=== PATIENT | male | born 1955 | race Caucasian/White ===

== ENCOUNTER 2016-11-17 08:10 | Inpatient (IN) ==
[2016-11-17] MEDS ORDERED: ceFAZolin 1,000 MG in D5% in Water (Mini-Bag+) 100 ML IVPB ONE (09:25)
[2016-11-17] MEDS: Ondansetron 4 MG/2 ML VIAL IVP PRN (09:41)
[2016-11-17] MEDS: *HR* Morphine 2 MG/ML SYRINGE IVP PRN ×3 (09:41→21:16)
[2016-11-17 10:44] LABS: Basophils % 0.4 %; Eosinophils # 0.1 K/mcL (0.0-0.6); Eosinophils % 1.1 %; Hematocrit 40.7 % (37.5-50.1); Hemoglobin 14.7 g/dL (12.9-16.9); Immature Granulocytes % 0.8 % (0-4); Lymphocytes # 1.3 K/mcL (0.6-4.6); Lymphocytes % 14.8 %; Mean Corpuscular HGB Conc 36.1 g/dL (31.6-35.5); Mean Corpuscular Hemoglobin 31.1 pg (28.0-33.3); Mean Platelet Volume 8.6 fL (9.4-12.4); Monocytes # 0.5 K/mcL (0.0-1.3); Monocytes % 5.4 %; Platelet Count 221 K/mcL (140-400); Red Blood Count 4.73 M/mcL (4.19-5.50); Red Cell Distribution Width 12.1 % (11.5-14.5); Segmented Neutrophils % 77.5 %
[2016-11-17 10:50] LABS: INR 0.9; Prothrombin Time 9.7 Seconds (9.4-12.1)
[2016-11-17 11:00] LABS: BUN/Creatinine Ratio 25 (6-26); Blood Urea Nitrogen 18 mg/dL (8-26); Calcium 9.6 mg/dL (8.6-10.8); Carbon Dioxide 21 mEq/L (19-29); Chloride 101 mEq/L (98-109); Glucose 180 mg/dL (70-99); Osmolality,Calculated 282 (280-300); Sodium 133 mEq/L (136-145); eGFR For African Americans > 60 (> 60); eGFR For Non-African Americans > 60 (> 60)
[2016-11-17 11:04] LABS: Potassium 3.8 mEq/L (3.5-4.5)
[2016-11-17] MEDS: *HR* OxyCODONE Immed Rel 5 MG TABLET PO PRN ×2 (11:11→17:41)
--- NOTE | 2016-11-17 11:40 | Orthopedic History & Physical ---
Date of Encounter: 11/17/16 Time of Encounter: 11:30 Assessment and Plan (1) Lumbar stenosis Current visit: Yes Status: Chronic Patient admitted today with preparation and anticipation surgery per Dr. Ram. Laminectomy L4-5 tomorrow 11/18/16. Patient verbalizes understanding of procedure. Dr. Ram to consent patient on day of surgery. Patient to be NPO after midnight. 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 Osborn is a 61 year old male known to [facility]. He has failed conservative treatment for his lumbar stenosis and radiculopathy including epidural steroid injection performed by Dr. Moulton. He was seen by Dr. Ram last week and given that his symptoms had not improved with conservative management, patient elected surgery. Patient was instructed to arrive this morning in preparation for Laminectomy for lumbar stenosis and radiculopathy affecting his RLE. Patient states that his RLE has gotten progressively more weak, numb, and painful over the past 6 months. He admits to trial of oral medications incluidng opiate pain medication which he states makes him quite nauseated and Ibuprofen which he states does help with mild pain and does not cause him nausea. Patient denies loss of bowel or bladder function, fall, mva, work injury , headaches, blurred vision, trouble swallowing, difficulty with speech, or chest pain or shortness of breath. Patient seen and examined at bedside with present. He is sitting comfortably in bed. Patient is alert and oriented x 3 and converses easily with clear speech and appropriate eye contact. His skin is free of erythema, ecchymosis, or petechiae. He has full use of his bilateral upper extremities. With regard to his lower extremities he demonstrates no tenderness to palpation and full ROM of all lower extremity joints. Strength in his right leg is 4/5 with obvious weakness compared to the left at 5/5 strength. He admits to paresthesia to palpation of right foot. Patient is otherwise neurovascularly intact with regard to all extremities. MRI OF THE LUMBAR SPINE WITHOUT CONTRAST, 10/22/2016 10:31 am TECHNIQUE: Multiplanar multisequence MRI of the lumbar spine was performed without the administration of intravenous contrast. HISTORY: LOW BACK PAIN FINDINGS: BONES/ALIGNMENT: Lumbar vertebral body height and alignment is normal. Multilevel anterior and posterior endplate spurring is noted. No vertebral body edema is noted. SPINAL CORD: Conus is not well seen SOFT TISSUES: No paraspinal mass identified. Multilevel disc desiccation is noted. L1-L2: Mild disc bulging is noted diffusely. Tiny annular tear is noted. Facet hypertrophic changes are noted. L2-L3: Minimal disc bulging is noted, left greater than right. Findings are greatest in the proximal inferior foraminal regions with minimal proximal foraminal narrowing bilaterally. Facet hypertrophic changes are noted. L3-L4: Facet hypertrophic changes are noted. L4-L5: Mild diffuse disc bulging is noted with annular tear. There is a right foraminal broad-based protrusion. Severe right foraminal narrowing is noted. There is mild left foraminal narrowing. Facet hypertrophic changes are noted. L5-S1: Facet hypertrophic changes are noted. Dr. Ram aware of patient in the hospital and planning to perform Laminectomy L4-5 tomorrow 11/18/16. Patient verbalizes understanding of procedure. Dr. Ram to consent patient on day of surgery. Patient to be NPO after midnight. Past Med Surg Social Fam HX - Past Medical History Medical history: diabetes, GERD Psychiatric history: no psych history - Past Surgical History Surgical History: cholecystectomy - Social History Smoking Status: Never smoker Smokeless Tobacco Status: No Alcohol use: none Drug use: none Medications and Allergies Acarbose [Precose] 50 mg PO BID 10/28/16 [History] Ascorbic Acid [Vitamin C] 1,000 mg PO DAILY 10/28/16 [History] Aspirin [Ecotrin] 325 mg PO DAILY 10/28/16 [History] Fish Oil/Dha/Epa [Fish Oil 1,200 mg Fish Oil] 1 each PO DAILY 10/28/16 [History] Lisinopril-HCTZ 20-12.5 [Prinzide 20-12.5] 1 tab PO DAILY 10/28/16 [History] Loratadine [Allergy Relief] 10 mg PO DAILY 10/28/16 [History] Metformin HCl [Fortamet] 1,000 mg PO BID 10/28/16 [History] Omeprazole [PriLOSEC] 20 mg PO DAILY 10/28/16 [History] amLODIPine [Norvasc] 5 mg PO BID 10/28/16 [History] glipiZIDE [Glipizide] 1 tab PO BID 10/28/16 [History] 3 Allergy/AdvReac Type Severity Reaction Status Date / Time No Known Allergies Allergy Verified 05/23/16 10:18 All Systems Reviewed: A 10-system review of systems was performed and is negative for pertinent findings except as documented above in the HPI. Physical Exam - Constitutional Vitals: Temp Pulse Resp BP Pulse Ox 97.5 F L 81 20 132/82 96 11/17/16 11:15 11/17/16 11:15 11/17/16 11:15 11/17/16 11:15 11/17/16 11:15 Results - Labs Result Diagrams: 11/17/16 09:46 11/17/16 09:46 Labs: Abnormal lab results MCHC 36.1 g/dL (31.6-35.5) H 11/17/16 09:46 MPV 8.6 fL (9.4-12.4) L 11/17/16 09:46 Sodium 133 mEq/L (136-145) L 11/17/16 09:46 Glucose 180 mg/dL (70-99) H 11/17/16 09:46 H & H 11/17/16 Range/Units 09:46 Hgb 14.7 (12.9-16.9) g/dL Hct 40.7 (37.5-50.1) % All other labs normal. - VTE Documentation of Mechanical Device: Intermittent pneumatic compression device
--- NOTE | 2016-11-17 20:29 | Anesthesia Evaluation PreOp ---
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 (RLE radiculopathy involving mostly numbness (lower leg and foot) and some weakness) Other Medical History: Diabetes Type II (oral medications only) Anesthesia History: No Prior Anesthetic Complications Alcohol Use: none Drug use: none Medications and Allergies Acarbose [Precose] 50 mg PO BID 10/28/16 [History] Ascorbic Acid [Vitamin C] 1,000 mg PO DAILY 10/28/16 [History] Aspirin [Ecotrin] 325 mg PO DAILY 10/28/16 [History] Fish Oil/Dha/Epa [Fish Oil 1,200 mg Fish Oil] 1 each PO DAILY 10/28/16 [History] Lisinopril-HCTZ 20-12.5 [Prinzide 20-12.5] 1 tab PO DAILY 10/28/16 [History] Loratadine [Allergy Relief] 10 mg PO DAILY 10/28/16 [History] Metformin HCl [Fortamet] 1,000 mg PO BID 10/28/16 [History] Omeprazole [PriLOSEC] 20 mg PO DAILY 10/28/16 [History] amLODIPine [Norvasc] 5 mg PO BID 10/28/16 [History] glipiZIDE [Glipizide] 1 tab PO BID 10/28/16 [History] 3 Allergy/AdvReac Type Severity Reaction Status Date / Time No Known Allergies Allergy Verified 05/23/16 10:18 - Meds/Allergy Pre-op Review Medications Reviewed: Yes Allergies Reviewed: Yes Beta Blockers on Current Med List: No Anesthesia Results - Labs 11/17/16 09:46 11/17/16 09:46 - Imaging EKG: report reviewed, image reviewed (SINUS RHYTHM BORDERLINE LEFT AXIS DEVIATION) Anesthesia Exam Last Vital Signs Temp 97.7 F 11/17/16 14:55 Pulse 80 11/17/16 14:55 Resp 18 11/17/16 14:55 BP 128/86 11/17/16 14:55 Pulse Ox 96 11/17/16 14:55 Weight: 90 kg NPO (# of Hours): >> 8 hrs - HEENT Pupil (Motor): Pupils equal, EOMI Mallampati: II Teeth: Poor dentition, Prosthesis Denture Type: Upper: Complete Oral Opening: Greater than 3 - GEOLOGICAL ENGINEERING TEACHER 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
[2016-11-17] MEDS: *HR* Metformin 500 MG TABLET PO SCH (21:00)
[2016-11-17] MEDS: *HR* GlipiZIDE 5 MG TABLET PO SCH (21:01)
[2016-11-17] MEDS: amLODIPine 5 MG TABLET PO SCH (21:01)
[2016-11-18] MEDS: Ondansetron 4 MG/2 ML VIAL IVP PRN ×2 (02:27→17:35)
[2016-11-18] MEDS: *HR* GlipiZIDE 5 MG TABLET PO SCH ×2 (07:33→23:41)
[2016-11-18] MEDS: amLODIPine 5 MG TABLET PO SCH (07:33)
[2016-11-18] MEDS: *HR* Metformin 500 MG TABLET PO SCH ×2 (07:33→23:41)
[2016-11-18] MEDS ORDERED: Loratadine 10 MG TABLET PO SCH (09:00)
[2016-11-18] MEDS ORDERED: Ascorbic Acid 500 MG TABLET PO SCH (09:00)
[2016-11-18] MEDS ORDERED: (Fish Oil/Dha/Epa [Fish Oil 1,200 Mg Fish Oil] 1 EACH) PO SCH (09:00)
[2016-11-18] MEDS ORDERED: Lisinopril-HCTZ 20-12.5mg TABLET PO SCH (09:00)
[2016-11-18] MEDS: Ringers Solution, Lactated 1,000 ML IVC SCH ×2 (09:43→21:30)
[2016-11-18] MEDS ORDERED: ceFAZolin 2,000 MG in D5% in Water (Mini-Bag+) 100 ML IVPB ONE (11:16)
--- NOTE | 2016-11-18 16:57 | Electrocardiograph Report ---
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
[2016-11-18] MEDS: *HR* Morphine 2 MG/ML SYRINGE IVP PRN (17:35)
[2016-11-18] MEDS ORDERED: *HR* Propofol 200 MG/20 ML VIAL IVP ONE (19:01)
[2016-11-18] MEDS ORDERED: *HR* FentaNYL (PF) 100 MCG/2 ML VIAL ONE (19:01)
[2016-11-18] MEDS ORDERED: *HR* Midazolam HCl 2 MG/2 ML VIAL ONE (19:01)
[2016-11-18] MEDS ORDERED: *HR* Succinylcholine 200 MG/10 ML VIAL IVP ONE (19:02)
[2016-11-18] MEDS ORDERED: *HR* Rocuronium Bromide 50 MG/5 ML VIAL ONE (19:02)
[2016-11-18] MEDS ORDERED: Lidocaine -MPF 2% 2 ML VIAL ONE (19:02)
[2016-11-18] MEDS ORDERED: *HR* Promethazine 25 MG/ML VIAL IVP PRN (19:36)
[2016-11-18] MEDS ORDERED: EPHEDrine 50 MG/ML VIAL ONE (20:19)
[2016-11-18] MEDS ORDERED: Dexamethasone 4 MG/ML VIAL ONE (20:25)
[2016-11-18] MEDS ORDERED: Ondansetron 4 MG/2 ML VIAL ONE (20:34)
[2016-11-18] MEDS ORDERED: *HR* HYDROmorphone 2 MG/ML SYRINGE ONE (20:36)
--- NOTE | 2016-11-18 21:03 | Orthopedic Operative Note ---
Date of procedure: 11/18/16 Pre-op diagnosis: Lumbar stenosis, lumbar radiculopathy, focal motor deficit Post-op diagnosis: same Operation/Findings: Laminectomy L4-L5: The patient was brought to the operative theater where he underwent general endotracheal anesthesia. He was given antibiotics prior to the start of the procedure. Compression boots and stockings were used for deep vein thrombosis prophylaxis. The patient was placed prone on a Zuhair table. The back was prepped and draped in the usual sterile fashion. An incision was marked and centered over the L4-L5 interspaces in the midline. We used Bovie cautery to make an incision and then this incision was deepened through the lumbar fascia. Bovie cautery and Lopes elevators were used to reflect the paraspinal musculature to the lateral extent of the L4-5 facet joints bilaterally. Tracy clamps were placed over the spinous processes of L4 and L5 and an intraoperative lateral fluorograph was obtained. A discusssion was held between the radiologist and surgeon who both confirmed we were at the correct operative level. We then removed the supraspinous and interspinous ligaments between L4 and L5 and subsequently removed the ligamentum flavum from its origin on the distal undersurface of the L4 lamina. The ligamentum flavum was noted to be hypertrophied as well as the facets were hypertrophied. This required performing a laminectomy of L4 with undercutting of the facets to decompress the lateral recesses. We inspected the L4-5 disc space by placing a dural retractor and protecting the neural elements. We subsequently made an annulotomy in the L4-L5 disc space. We removed disc material with pituitary instruments and projected the instrument laterally to remove disc material and the foraminal and far lateral portion of the disc on the right. After the decompression was complete we checked the foramen and the traversing nerve roots at L4-5 and they were found to be free and patent. We copiously irrigated the wound and then closed the wound in layers with 1 Vicryl for the fascia, 2-0 Vicryl for the subcutaneous tissue, and Dermabond was used for skin closure. Sterile dressings were placed over the wound, the patient was turned supine in a hospital bed, and was extubated in the operative theater. All sponge needles and instrument counts were correct at the end of the procedure. The patient tolerated the procedure well without complications. Anesthesia: GETA Surgeon: Cristi Ram Jr Estimated blood loss (cc): 12 Condition: stable Disposition: PACU
[2016-11-18] MEDS: *HR* HYDROmorphone (PF) 1 MG/ML SYRINGE IVP PRN ×4 (21:27→21:52)
[2016-11-18] MEDS ORDERED: *HR* Morphine 2 MG/ML SYRINGE IVP PRN (22:25)
[2016-11-18] MEDS ORDERED: Ondansetron 4 MG/2 ML VIAL IVP PRN (22:25)
[2016-11-18] MEDS ORDERED: Ringers Solution, Lactated 1,000 ML IVC SCH (22:25)
[2016-11-18] MEDS ORDERED: Naloxone 0.4 MG/ML INJ IVP PRN (22:25)
[2016-11-18] MEDS ORDERED: *HR* OxyCODONE Immed Rel 5 MG TABLET PO PRN (22:25)
--- NOTE | 2016-11-18 22:27 | Anesthesia Evaluation Post Op ---
Date of Encounter: 11/18/16 Time of Encounter: 22:10 - Vital Signs Vital Signs: Last Vital Signs Temp 98.5 F 11/18/16 22:15 Pulse 90 11/18/16 22:06 Resp 12 11/18/16 22:06 BP 109/75 11/18/16 22:06 Pulse Ox 96 11/18/16 22:06 - Lungs Lungs: Clear Ascult./Percussion - Airway Airway: Non-obstructed - Cardiovascular Regular Rate - Mental Status Mental Status: Alert & Oriented, Answers Appropriately - Pain Pain Scale: 4 - Nausea Vomiting Nausea Vomiting: Not Present - Hydration Hydration: NPO - Discharge PostOp Status: Transfer Patient to floor
[2016-11-18] MEDS: ceFAZolin 2,000 MG in D5% in Water 100 ML IVPB SCH (23:44)
[2016-11-19] MEDS: ceFAZolin 2,000 MG in D5% in Water 100 ML IVPB SCH (08:47)
[2016-11-19] MEDS: *HR* Metformin 500 MG TABLET PO SCH (08:53)
[2016-11-19] MEDS ORDERED: Aspirin Enteric Coated 325 MG Tablet PO SCH (09:00)
[2016-11-19] MEDS: *HR* GlipiZIDE 5 MG TABLET PO SCH (09:10)
[2016-11-19 11:34] VITALS: BP 147/97
[2016-11-19] MEDS ORDERED: D5% in Water 1,000 ML IVC PRN (11:39)
[2016-11-19] MEDS ORDERED: Dextrose Gel 15 GM PO PRN ×2 (11:39)
[2016-11-19] MEDS ORDERED: *HR* Dextrose 50 % in Water (Syg) 50 ML SYRINGE IVP PRN (11:39)
[2016-11-19] MEDS ORDERED: Insulin LISPRO 300 UNITS/3 ML VIAL SQ SCH ×2 (11:45→21:00)
--- NOTE | 2016-11-19 12:18 | Discharge Summary ---
Date of Encounter: 11/19/16 Time of Encounter: 12:16 - Discharge Medications Prescriptions: OxyCODONE Immed Rel [Roxicodone 5 MG] 5 mg PO Q6HR PRN #30 tab PRN Reason: Severe Pain Home Medications: Acarbose [Precose] 50 mg PO BID 10/28/16 [History] Ascorbic Acid [Vitamin C] 1,000 mg PO DAILY 10/28/16 [History] Aspirin [Ecotrin] 325 mg PO DAILY 10/28/16 [History] Fish Oil/Dha/Epa [Fish Oil 1,200 mg Fish Oil] 1 each PO DAILY 10/28/16 [History] Lisinopril-HCTZ 20-12.5 [Prinzide 20-12.5] 1 tab PO DAILY 10/28/16 [History] Loratadine [Allergy Relief] 10 mg PO DAILY 10/28/16 [History] Metformin HCl [Fortamet] 1,000 mg PO BID 10/28/16 [History] Omeprazole [PriLOSEC] 20 mg PO DAILY 10/28/16 [History] amLODIPine [Norvasc] 5 mg PO BID 10/28/16 [History] glipiZIDE [Glipizide] 1 tab PO BID 10/28/16 [History] OxyCODONE Immed Rel [Roxicodone 5 MG] 5 mg PO Q6HR PRN #30 tab 11/19/16 [Rx] Allergies/Adverse Reactions: 3 Allergy/AdvReac Type Severity Reaction Status Date / Time No Known Allergies Allergy Verified 05/23/16 10:18 Labs on day of discharge: Labs from last 24 hours 11/19/16 11/19/16 11/18/16 11:35 07:53 22:29 POC Glucose 255 H 293 H 245 H 11/18/16 16:07 POC Glucose 161 H - Impressions ITS Impressions Chest X-Ray 11/17/16 09:26 IMPRESSION: Normal chest x-ray. D/ / 11/17/2016 13:57:40 Dayton Palmer MD / kayleen Interpreting Provider: Dayton Palmer MD Fluoroscopy 11/18/16 20:10 IMPRESSION: Intraprocedural fluoroscopic spot images as above. See separate procedure report for more information. D/ / Heather Patton Cha, MD / Heather Patton Cha, MD Interpreting Provider: Heather Patton Cha, MD Date of admission: 11/18/16 10:42 Primary care physician: PCP NONE Consults: 11/18/16 22:25 Consult to Nurse Navigator [CONS] Routine Comment: spine navigator Consult to Occupational Therapy [CONS] Routine Comment: Evaluate, develop and implement POC Reason for Consult: Postoperative Consult to Physical Therapy [CONS] Routine Comment: Evaluate, develop and implement POC Reason for Consult: Postoperative - Patient Status Disposition: Home, Self-Care Condition: Good Overall status at discharge: patient is progressing back to baseline - Discharge Instructions Follow Up With: NONE,PCP [Primary Care Provider] - - Diet and Activity Activity: as per physical therapy Diet: advance to your usual diet - Hospital Course Hospital course: Mr. Osborn is a 61 year old male The patient had an uneventful postoperative course. He had some hyperglycemia which was resolved satisfactorily. Progressed from intravenous analgesic needs to oral analgesic needs only. Remained neurovascularly intact and mobilized satisfactorily. All intraoperative and/or postoperative radiographic studies were satisfactory. Patient is discharged with plan for rehabilitation and follow-up in 2 weeks post discharge on analgesic medication and patient's home medications. - Time Spent with Patient Total time spent providing and/or coordinating discharge services: - VTE Documentation of Mechanical Device: Intermittent pneumatic compression device
== END 2016-11-19 16:38 | disposition home or self-care (01) | DRG 520 ==
LOC: 3NENU
PROVIDERS: ADMIT Orthopaedic Surgery Orthopaedic Surgery of the Spine; ATTEND Orthopaedic Surgery Orthopaedic Surgery of the Spine